=== PATIENT | female | born 1965 | race Caucasian/White ===

== ENCOUNTER → 2016-09-20 | Outpatient (CLI) | payer BC ==
--- NOTE | 2016-09-25 11:04 | MM ---
Reason for exam: screening (asymptomatic). Last mammogram was performed 2 years and 6 months ago. Physical Findings: A clinical breast exam by your physician is recommended on an annual basis and results should be correlated with mammographic findings. MG Screening Mammo w CAD Bilateral CC and MLO view(s) were taken. XCCL view(s) were taken of the right breast. Prior study comparison: March 25, 2014, bilateral MG screening mammo w CAD. August 27, 2012, bilateral digital screening mammo w/CAD. The breast tissue is heterogeneously dense. This may lower the sensitivity of mammography. There is no discrete abnormality. No significant changes when compared with prior studies. ASSESSMENT: Negative, BI-RAD 1 RECOMMENDATION: Routine screening mammogram of both breasts in 1 year.
== END ==
LOC: RADMAMWWP 08:23
PROVIDERS: ATTEND Family Medicine
DX: Z12.31 Encounter for screening mammogram for malignant neoplasm of breast (principal)

== ENCOUNTER 2016-11-22 07:11 | Day surgery (SDC) | payer BC ==
[2016-11-21 08:38] VITALS: BMI 26.4
[~2016-11-22 07:11] MED LIST: LACTATED RINGERS 1,000 ML IV SCH; LIDOCAINE 1% 20 ML VIAL (10MG/ML) FOR IV START INTRADERMA PRN
[2016-11-22 07:30] VITALS: TEMP 97.3
[2016-11-22] MEDS ORDERED: LIDOCAINE 1% 20 ML VIAL (10MG/ML) FOR IV START INTRADERMA ONE (07:38)
[2016-11-22] MEDS ORDERED: PROPOFOL 10 MG/ML 20 ML VIAL IV ONE (08:11)
[2016-11-22] MEDS ORDERED: LIDOCAINE 1% INJ 10MG/ML (20 ML MDV) ONE (08:11)
--- NOTE | 2016-11-22 08:31 | P.PCN ---
Date of Procedure: 11/22/16 Preoperative Diagnosis: Postoperative Diagnosis: Procedure(s) Performed: BRIEF HISTORY: Patient is a 51-year-old pleasant white female, scheduled for an elective colonoscopy as a part of screening for colorectal neoplasia. PROCEDURE PERFORMED: Colonoscopy. PREOPERATIVE DIAGNOSIS: Screening for colon cancer. IV sedation per Anesthesia. PROCEDURE: After informed consent was obtained, the patient, was brought into the endoscopy unit. IV sedation was administered by Anesthesia under continuous monitoring. Digital rectal examination was normal. Initially the Olympus CF- 160 flexible video colonoscope was then inserted in the rectum, gradually advanced into the cecum without any difficulty. Careful examination was performed as the scope was gradually being withdrawn. Ileocecal valve and the appendiceal orifice were visualized and appeared normal. Prep was excellent. Mucosa of the cecum, ascending colon, transverse colon, descending colon, sigmoid colon, and rectum appeared normal. Scattered sigmoid diverticulosis seen. Retroflexion was performed in the rectum and no lesions were seen. The patient tolerated the procedure well. IMPRESSION: Normal-appearing colon from rectum to cecum with no evidence of colorectal neoplasia . Scattered sigmoid diverticulosis. RECOMMENDATIONS: Findings of this examination were discussed with the patient as well as her family. She was advised to have a repeat screening colonoscopy in 10 years. Implants: Indications for Procedure: Operative Findings: Description of Procedure:
[2016-11-22 08:33] VITALS: RESP 16
[2016-11-22 09:07] VITALS: BP 117/68; PULSE 60
== END 2016-11-22 09:12 | disposition home or self-care (01) ==
LOC: ORWHC2ENDO 07:11
PROVIDERS: ATTEND Internal Medicine Gastroenterology
DX: Z12.11 Encounter for screening for malignant neoplasm of colon (principal); K57.30 Diverticulosis of large intestine without perforation or abscess without bleeding
CPT/HCPCS: 81025; J2001; J2704; G0121

== ENCOUNTER → 2018-03-06 | Outpatient (CLI) | payer BC ==
--- NOTE | 2018-03-07 14:19 | MM ---
Reason for exam: screening (asymptomatic). Last mammogram was performed 1 year and 5 months ago. Physical Findings: A clinical breast exam by your physician is recommended on an annual basis and results should be correlated with mammographic findings. MG Screening Mammo w CAD Bilateral CC and MLO view(s) were taken. XCCL view(s) were taken of the right breast. Prior study comparison: September 20, 2016, bilateral MG screening mammo w CAD. March 25, 2014, bilateral MG screening mammo w CAD. The breast tissue is heterogeneously dense. This may lower the sensitivity of mammography. Finding: There are typically benign vascular, round calcifications in the right breast. There is no discrete abnormality. ASSESSMENT: Benign, BI-RAD 2 RECOMMENDATION: Routine screening mammogram of both breasts in 1 year.
== END | disposition home or self-care (01) ==
LOC: RADMAMWWP 08:20
PROVIDERS: ATTEND Family Medicine
DX: Z12.31 Encounter for screening mammogram for malignant neoplasm of breast (principal)
CPT/HCPCS: 77067

== ENCOUNTER → 2018-03-14 | Outpatient (CLI) | payer BC ==
--- NOTE | 2018-03-14 10:50 | CT ---
EXAMINATION TYPE: CT abdomen pelvis w con DATE OF EXAM: 03/14/2018 COMPARISON: HISTORY: Abdominal and pelvic pain CT DLP: 986 mGycm CONTRAST: CT scan of the abdomen and pelvis is performed with Oral Contrast and with IV Contrast, patient injec gloria with 100 ml mL of Isovue 300. FINDINGS: LUNG BASES-: No visible nodule. No infiltrate. LIVER/GB: No calcified gallstones. No space occupying hepatic lesion. Biliary tree is of normal ca liber. PANCREAS: No inflammation. No distinct mass. SPLEEN: No splenic enlargement. No lesion seen. 1 cm splenic artery aneurysm noted. ADRENALS: No nodule. No thickening. KIDNEYS/BLADDER: No hydronephrosis. No nephrolithiasis. No distinct renal mass. Urinary bladder g rossly unremarkable. BOWEL: Normal appendix. Normal bowel caliber. No inflammation. GENITAL ORGANS: Left ovarian cyst measuring 2.6 cm. Right ovary is unremarkable. Subendometrial cyst s noted to measure 7 mm. Bilateral tubal ligation changes. LYMPH NODES: No greater than 1cm abdominal or pelvic lymph nodes are appreciated. AORTA: No significant abnormality. OSSEOUS STRUCTURES: No significant abnormality is seen. OTHER: No significant additional abnormality is seen. IMPRESSION: 1. Left ovarian cystic lesion noted. Examination is otherwise unremarkable.
== END | disposition home or self-care (01) ==
LOC: RADCTMAIN 09:08
PROVIDERS: ATTEND Family Medicine
DX: N83.202 Unspecified ovarian cyst, left side (principal)
CPT/HCPCS: 74177; Q9967

== ENCOUNTER → 2018-04-11 | Outpatient (CLI) | payer BC | LOC: LABPAT 09:21 | PROVIDERS: ATTEND Obstetrics & Gynecology | DX: Z01.812 Encounter for preprocedural laboratory examination (principal); N94.6 Dysmenorrhea, unspecified; N80.0 Endometriosis of uterus | CPT/HCPCS: 80051; 82565; 82947; 84520; 85025; 86850; 86870; 86880; 86900; 86901; 87086 ==

== ENCOUNTER 2018-04-15 05:44 | Observation (INO) | payer BC ==
[2018-04-11 09:55] LABS: Basophils % (A) 0 %; Eosinophils # (A) 0.3 k/uL (0-0.7); Eosinophils % (A) 5 %; HGB 13.2 gm/dL (11.4-16.0); Lymphocytes # (A) 1.5 k/uL (1.0-4.8); Lymphocytes % (A) 24 %; MCH 30.2 pg (25.0-35.0); MCV 91.5 fL (80.0-100.0); Mean Platelet Volume 6.5; Monocytes # (A) 0.3 k/uL (0-1.0); Monocytes % (A) 5 %; Neutrophils # (A) 3.9 k/uL (1.3-7.7); Neutrophils % (A) 64 %; Platelet Count 258 k/uL (150-450); RBC 4.37 m/uL (3.80-5.40); RDW 12.7 % (11.5-15.5); WBC 6.2 k/uL (3.8-10.6)
[2018-04-11 10:27] LABS: Anion Gap 8 mmol/L; Blood Urea Nitrogen 16 mg/dL (7-17); Carbon Dioxide 29 mmol/L (22-30); Chloride 105 mmol/L (98-107); Glucose 92 mg/dL (74-99); Sodium 142 mmol/L (137-145)
[2018-04-11 15:45] VITALS: BMI 27.3
--- NOTE | 2018-04-12 13:37 | HP ---
HISTORY AND PHYSICAL This is for surgery on Sunday, April 15. This is a 52-year-old white female 3, para 3-0-0-3, status post section x3, NovaSure endometrial ablation, and tubal ligation. The patient has done well after her ablation with the exception of the past several months. Her menses have become extremely uncomfortable,"debilitating". She has had pelvic and abdominal CT scans, several visits to the emergency room, and different pain medications, all within the past several months. Her most recent menses was so severe that she states,"I will never do that again". Patient understands that she is reasonably close to the menopause, however, recent FSH was in the normal ovulatory range. Ultrasound has been performed in the office, this reveals reasonably normal findings, uterine dimensions 8.4 x 4.6 x 3.8 cm, normal endometrial thickness. No ovarian abnormalities noted. I suspect the patient has adenomyosis. We have discussed in detail different options and she would like to proceed with hysterectomy. PAST MEDICAL HISTORY: Past medical history is unremarkable. PAST SURGICAL HISTORY: sections x3, endometrial ablation in 2016, tubal ligation in the past. SOCIAL HISTORY: Patient is , social alcohol, no drug use or tobacco use. She is employed at a local physician's office. CURRENT MEDICATIONS: Lysteda 650 mg as needed for pain control with menses. FAMILY HISTORY: Hypothyroidism and myocardial infarction. PHYSICAL EXAMINATION: On examination, this is a pleasant white female, 5 feet 0 inches, 145 pounds, BMI 27. Blood pressure 120/70. HEENT examination is negative, no thyromegaly, no cervical lymphadenopathy. Trachea soft and midline. Good range of motion of the neck. Breasts are bilaterally symmetric to inspection with no skin dimpling, nipple discharge, axillary adenopathy or discernible lesions or masses. Abdomen is soft and nontender, no CVA tenderness, normal bowel sounds, no organosplenomegaly. Chest is clear to auscultation in all mata anteriorly and posteriorly. Cardiac exam reveals regular rate and rhythm with no murmur, click, or rub. Extremities reveal good range of motion and normal reflexes, no edema. External genitalia is well estrogenized. Cervix is small and pink. In grasping the cervix at 12 o'clock with an Allis clamp, there is a grade 2 uterine prolapse appreciated. Uterus is otherwise smooth and small, midline. Adnexa are negative bilaterally. Rectal exam reveals good sphincter tone and FIT negative stool. IMPRESSION: 1. Increasingly severe dysmenorrhea, suspect adenomyosis. 2. Three previous sections. PLAN: I discussed with the patient total abdominal hysterectomy, Da Jacklyn robotically assisted hysterectomy, or straight vaginal hysterectomy. The uterus is small and mobile, there is an amount of prolapse, and I believe the case is best handled vaginally. We reviewed the risks of bleeding, infection, perforation or damage to the bladder, bowels, ureter. If bladder injury should occur, we will ask for urology assistance in repairing the same. Cystoscopy will be performed after the case to assure integrity of the bladder wall and ureters. The ACOG pamphlet on this have been given to the patient for her review. Patient has a strong medical background and I believe she understands our discussion with no reservation or question. Second opinion is offered and declined. MMODL / IJN: [id number] /
[~2018-04-15 05:44] MED LIST changes: -LACTATED RINGERS 1,000 ML IV SCH; -LIDOCAINE 1% 20 ML VIAL (10MG/ML) FOR IV START INTRADERMA PRN; +ceFAZolin IN SWFI 2 GM/20 ML SYRINGE IVP ONE
[2018-04-15] MEDS ORDERED: fentaNYL (PF) 50 MCG/ML 2 ML AMP IV PRN (06:16)
[2018-04-15] MEDS ORDERED: LIDOCAINE 1% 20 ML VIAL (10MG/ML) FOR IV START INTRADERMA PRN (06:16)
[2018-04-15] MEDS ORDERED: DEXAMETHASONE SOD PHOSPHATE 10 MG/ML 1 ML VIAL IV ONE (06:16)
[2018-04-15] MEDS ORDERED: MIDAZOLAM 2 MG/2 ML VIAL IV PRN (06:16)
[2018-04-15] MEDS ORDERED: ONDANSETRON 4 MG/2 ML VIAL IVP ONE (06:16)
[2018-04-15] MEDS: LACTATED RINGERS 1,000 ML IV SCH ×2 (06:30→18:12)
[2018-04-15] MEDS ORDERED: LIDOCAINE 1% INJ 10MG/ML (20 ML MDV) ONE (07:24)
[2018-04-15] MEDS ORDERED: MIDAZOLAM 2 MG/2 ML VIAL ONE (07:24)
[2018-04-15] MEDS ORDERED: PROPOFOL 10 MG/ML 20 ML VIAL IV ONE (07:24)
[2018-04-15] MEDS ORDERED: GLYCOPYRROLATE 0.2 MG/ML 2 ML VIAL ONE (07:24)
[2018-04-15] MEDS ORDERED: fentaNYL (PF) 50 MCG/ML 2 ML AMP ONE (07:24)
[2018-04-15] MEDS ORDERED: MORPHINE SULFATE (PF) 0.3 MG/0.3 ML SYR ONE (07:24)
[2018-04-15] MEDS ORDERED: ROCURONIUM BROMIDE 10 MG/ML 10 ML VIAL IV ONE (07:24)
[2018-04-15] MEDS ORDERED: NEOSTIGMINE 1 MG/ML 10 ML VIAL ONE (07:24)
[2018-04-15] MEDS ORDERED: HYDROmorphone (PF) 1 MG/ML ONE (07:24)
[2018-04-15] MEDS ORDERED: VASOPRESSIN 20 UNIT/ML 1 ML VIAL IM ONE (07:41)
[2018-04-15] MEDS ORDERED: LACTATED RINGERS 1,000 ML IV ONE (08:53)
[2018-04-15 10:12] VITALS: RESP 16
[2018-04-15] MEDS ORDERED: diphenhydrAMINE 50 MG/ML 1 ML VIAL IVP PRN (10:22)
[2018-04-15] MEDS ORDERED: Acetaminophen-Codeine 300-30mg TAB PO PRN (10:22)
[2018-04-15] MEDS ORDERED: ZOLPIDEM 5 MG TAB PO PRN (10:22)
[2018-04-15] MEDS ORDERED: ONDANSETRON 4 MG/2 ML VIAL IVP PRN (10:22)
[2018-04-15] MEDS ORDERED: IBUPROFEN 600 MG TAB PO PRN (10:22)
--- NOTE | 2018-04-15 10:22 | P.OP ---
Date of Procedure: 04/15/18 Preoperative Diagnosis: Severe dysmenorrhea, adenomyosis. Postoperative Diagnosis: Same, normal-appearing ovaries bilaterally. Procedure(s) Performed: Vaginal hysterectomy Anesthesia: CATHLEEN Surgeon: Ethel Francisco [employer] Officer #1: Ana Maria Marroquin Estimated Blood Loss (ml): 300 IV fluids (ml): 1,000 Urine output (ml): 400 Pathology: other (Cervix and uterus) Condition: stable Disposition: PACU Description of Procedure: Patient is brought to the operating suite where a spinal with Duramorph is given. She's placed in the dorsal lithotomy position after the administration of a general anesthetic. The appropriate timeout is performed to assure proper patient and procedural identification. Urine test is negative. The cervix, vagina, perineal bodies are all prepped and draped in usual sterile fashion. Pardo catheter is used to drain the bladder for several 100 mL of urine. Weighted speculum was placed into the vagina. The anterior lip of the cervix is grasped with a double-tooth tenaculum. The cervix is injected circumferentially with a dilute Pitressin solution. A kootenai blade scalpel is used to push the mucosa from the underlying fascial plane. Peritoneum is entered posteriorly at 6:00 and suture tied with 2-0 Vicryl, this is held with a hemostat. The large billed speculum is then placed into the peritoneal cavity. At all times care is taken to keep the bladder swept well from the operative field to avoid bladder and/or ureteral injury. The uterosacral cardinal ligaments are identified, clamped cut and held with 0 Vicryl suture in a fanlike fashion. Additional pedicles are taken superior to this on either side. Uterine vasculature is identified, clamped cut and suture ligated. In attempting to "walked out" the uterus posteriorly, the uterus is very friable and tenaculums, Allis clamps, ring forceps all sheared or pulled through the tissue. For this reason, mobilization posteriorly of the uterus was difficult. The anterior peritoneum was entered carefully, Erika clamps are used around the final pedicles and the uterus is sent to pathology for evaluation. The remaining pedicles are suture tied with 0 Vicryl, flashed, and retied. At this time a sponge stick is used to visualize the ovaries, they appear normal , very high in the cavity bilaterally, clean and dry. All vascular pedicles are once again visualized and noted to be normal. The speculum is changed to the shallow billed speculum. The previously placed 2-0 Vicryl suture is brought around in a pursestring fashion to close the peritoneum. The previously held uterosacral cardinal ligament complex these are brought across to incorporate the opposite complex as well as vaginal mucosa. 3 other figure- of-eight sutures are used on the vaginal mucosa for final closure. At this time the cystoscope was placed into the bladder and the bladder is distended with sterile saline. Inspection of the bladder mucosa reveals it to be intact. Bilateral ureters are inspected and noted to be peristalsing. Cystoscope was removed. Pardo catheter is placed. Vagina is packed with one- inch iodophor gauze with basic tracing. All sponge needle and enhancement counts are correct at the end of the procedure. Estimated blood loss 300 mL, fluid replacement 1000 mL, urine 400 mL's. Patient is brought back to recovery room in very good condition with a blood pressure of 143/82, pulse 56.
[2018-04-15] MEDS: METOCLOPRAMIDE 5 MG/ML 2 ML VIAL IVP PRN ×2 (11:11→18:20)
[2018-04-15] MEDS: KETOROLAC 30 MG/ML 1 ML VIAL IVP PRN ×3 (11:21→23:21)
[2018-04-16] MEDS: KETOROLAC 30 MG/ML 1 ML VIAL IVP PRN (05:24)
[2018-04-16 08:22] LABS: Basophils % (A) 0 %; Eosinophils # (A) 0.1 k/uL (0-0.7); Eosinophils % (A) 1 %; HGB 10.4 gm/dL (11.4-16.0); Lymphocytes # (A) 1.5 k/uL (1.0-4.8); Lymphocytes % (A) 15 %; MCH 29.8 pg (25.0-35.0); MCHC 32.5 g/dL (31.0-37.0); MCV 91.6 fL (80.0-100.0); Mean Platelet Volume 6.7; Monocytes # (A) 0.6 k/uL (0-1.0); Monocytes % (A) 6 %; Neutrophils # (A) 7.7 k/uL (1.3-7.7); Neutrophils % (A) 77 %; Platelet Count 226 k/uL (150-450); RBC 3.49 m/uL (3.80-5.40); RDW 12.8 % (11.5-15.5)
--- NOTE | 2018-04-16 08:52 | P.DS ---
Providers Date of admission: 04/15/18 15:57 Expected date of discharge: 04/16/18 Attending physician: Ethel Francisco Primary care physician: [facility] Course: This is a 52-year-old white female 3 para 3003 who presents with a history of severe increasing dysmenorrhea. She has had a previous NovaSure endometrial ablation and the diagnosis of adenomyosis extremely. She has not been controlled with any type of narcotics or pain medication and therefore the decision was made to proceed with vaginal hysterectomy. Please see my dictated history and physical for details. Patient underwent a vaginal hysterectomy under my care. She did well intraoperatively with an estimated blood loss of 300 mL's. Cystoscopy after the procedure revealed negative appearing bladder cavity, normal-appearing ureters bilaterally. The vagina was packed with iodoform gauze, ovaries were inspected and noted to be normal and therefore left in situ. Please see my dictated operative note for details. This morning the Pardo catheter and the vaginal packing is then removed. CBC is stable. Vital signs the been stable and the patient feels well. She is voiding, ambulating and passing flatus without difficulty. There is no vaginal bleeding. No flank pain. Patient is judged to be in very good condition for discharge home. She will follow-up with me in the office in 2 weeks. I have reminded her no intercourse tampons or douching. She will use [id number] Advil or Aleve or the lysteda previously prescribed for pain as needed. No heavy lifting, no driving for 2 weeks. No heavy lifting greater than then 25 pounds, no heavy housework. Patient will call with any fevers shakes or chills, foul smelling or bloody vaginal drainage, with any pain not alleviated by [id number] products, with any issues with urination or defecation, or indeed with any concerns. Patient Condition at Discharge: Good Plan - Discharge Summary Discharge Rx Participant: Yes New Discharge Prescriptions: No Action No Known Home Medications Discharge Medication List No Known Home Medications 03/31/16 [History] Follow up Appointment(s)/Referral(s): Ethel Francisco MD [STAFF PHYSICIAN] - 2 Weeks Discharge Disposition: HOME SELF-CARE
[2018-04-16 09:33] VITALS: BP 105/62; PULSE 65; TEMP 98.2
--- NOTE | 2018-04-16 10:38 | P.PN ---
Subjective Progress Note Date: 04/16/18 Principal diagnosis: POD 1 Vaginal Hysterectomy VAS 4/10 denies compliants No headaches, no pruruitis Primary team for pain managment Objective - Vital Signs Vital signs: Vital Signs Temp 98.2 F 04/16/18 08:00 Pulse 65 04/16/18 08:00 Resp 16 04/16/18 08:00 BP 105/62 04/16/18 08:00 Pulse Ox 96 04/15/18 23:52 Intake & Output 04/15/18 04/16/18 04/16/18 18:59 06:59 18:59 Intake Total 1100 Output Total 1150 1550 Balance -50 -1550 Weight 63.503 kg Intake: IV 1100 Output: Urine 850 1550 Uretheral (Pardo) 450 Estimated Blood Loss 300 Other: Voiding Method Indwelling Catheter # Voids 0 - Labs CBC & Chem 7: 04/16/18 07:34 04/11/18 09:24 Labs: Abnormal Lab Results - Last 24 Hours (Table) 04/16/18 Range/Units 07:34 RBC 3.49 L (3.80-5.40) m/uL Hgb 10.4 L (11.4-16.0) gm/dL Hct 32.0 L (34.0-46.0) %
== END 2018-04-16 11:00 | disposition home or self-care (01) ==
LOC: OR 05:44 → 4FBP 09:46 → OR 16:00
PROVIDERS: ADMIT Obstetrics & Gynecology; ATTEND Obstetrics & Gynecology
DX: N80.0 Endometriosis of uterus (principal); N94.6 Dysmenorrhea, unspecified; N81.4 Uterovaginal prolapse, unspecified; Z98.51 Tubal ligation status; Z83.49 Family history of other endocrine, nutritional and metabolic diseases; Z82.49 Family history of ischemic heart disease and other diseases of the circulatory system
CPT/HCPCS: 58260; 81025; 85025; 88307; G0378 ×2; J2250; J1100; J2710; J2765; J2405; J2001; J2274; J3010; J1885 ×2; J1170; J2704; J0690; 80051; 82565; 82947; 84520; 86850; 86870; 86880; 86900; 86901; 87086

== ENCOUNTER → 2019-04-07 | Outpatient (CLI) | payer BC ==
--- NOTE | 2019-04-07 13:20 | MM ---
Reason for exam: screening (asymptomatic). Last mammogram was performed 1 year and 1 month ago. History: Patient is postmenopausal. Physical Findings: A clinical breast exam by your physician is recommended on an annual basis and results should be correlated with mammographic findings. MG Screening Mammo w CAD Bilateral CC and MLO view(s) were taken. Prior study comparison: March 06, 2018, bilateral MG screening mammo w CAD. September 20, 2016, bilateral MG screening mammo w CAD. The breast tissue is heterogeneously dense. This may lower the sensitivity of mammography. Stable calcifications in the right breast. No suspicious abnormality. No significant changes when compared with prior studies. ASSESSMENT: Negative, BI-RAD 1 RECOMMENDATION: Routine screening mammogram of both breasts in 1 year.
== END | disposition home or self-care (01) ==
LOC: RADMAMWWP 08:38
PROVIDERS: ATTEND Obstetrics & Gynecology
DX: Z12.31 Encounter for screening mammogram for malignant neoplasm of breast (principal)
CPT/HCPCS: 77067

== ENCOUNTER → 2020-04-14 | Outpatient (CLI) | payer BC ==
--- NOTE | 2020-04-19 11:43 | MM ---
Reason for exam: screening (asymptomatic). Last mammogram was performed 1 year ago. History: Patient is postmenopausal. Physical Findings: A clinical breast exam by your physician is recommended on an annual basis and results should be correlated with mammographic findings. MG Screening Mammo w CAD Bilateral CC and MLO view(s) were taken. Prior study comparison: April 07, 2019, bilateral MG screening mammo w CAD. March 06, 2018, bilateral MG screening mammo w CAD. The breast tissue is heterogeneously dense. This may lower the sensitivity of mammography. A few benign vascular calcifications. No significant changes when compared with prior studies. ASSESSMENT: Negative, BI-RAD 1 RECOMMENDATION: Routine screening mammogram of both breasts in 1 year.
== END | disposition home or self-care (01) ==
LOC: RADMAMWWP 07:59
PROVIDERS: ATTEND Family Medicine
DX: Z12.31 Encounter for screening mammogram for malignant neoplasm of breast (principal)
CPT/HCPCS: 77067

== ENCOUNTER → 2021-04-06 | Outpatient (CLI) | payer BC ==
--- NOTE | 2021-04-06 13:13 | XR ---
Lumbar spine HISTORY: Low back pain 3 views the lumbar spine There is an anterolisthesis grade 1 L4-5. There is associated loss of disc height at L2-3, L4-5, L5-S 1. Sclerosis is present in the posterior elements of lumbar spine. Multilevel spondylosis is present. Lumbar vertebral bodies show preserved height and bone mineralization. IMPRESSION: Spondylolisthesis, degenerative disc disease and facet arthropathy.
== END | disposition home or self-care (01) ==
LOC: RADXRMAIN 11:08
PROVIDERS: ATTEND Family Medicine
DX: M51.36 Other intervertebral disc degeneration, lumbar region (principal); M47.816 Spondylosis without myelopathy or radiculopathy, lumbar region; M43.16 Spondylolisthesis, lumbar region
CPT/HCPCS: 72100

== ENCOUNTER → 2021-08-24 | Outpatient (CLI) | payer BC ==
--- NOTE | 2021-08-24 10:51 | BD ---
EXAMINATION TYPE: Axial Bone Density DATE OF EXAM: 08/24/2021 COMPARISON: NONE CLINICAL HISTORY: Height: 60.2 IN Weight: 148 LBS FRAX RISK QUESTIONS: Secondary Osteoporosis: 3. Menopause before 45: PARTIAL HYST AGE 52 RISK FACTORS HISTORY OF: Active: YES Diet low in dairy products/other sources of calcium: YES Postmenopausal woman: PARTIAL HYST AGE 52 MEDICATIONS: Additional Medications: CALCIUM, VIT D, ASPIRIN EXAM MEASUREMENTS: Bone mineral densitometry was performed using the [employer]chips System. Bone mineral density as measured about the Lumbar spine is: ----- L1-L4(G/cm2): 1.357 T Score Values are as follows: ----- L2: 1.4 ----- L3: 1.8 ----- L4: 1.8 ----- L1-L4: 1.5 Bone mineral density BASELINE Bone mineral density about the R hip (g/cm2): 1.028 Bone mineral density about the L hip (g/cm2): 1.055 T Score values are as follows: -----R Neck: -0.1 -----L Neck: 0.1 -----R Total: 0.8 -----L Total: 1.3 Bone mineral density BASELINE IMPRESSION: No evidence for osteoporosis or osteopenia at this time. NOTE: T-SCORE=SD OF THE YOUNG ADULT MEAN.
--- NOTE | 2021-08-24 11:27 | MM ---
Reason for exam: screening (asymptomatic). Last mammogram was performed 1 year and 4 months ago. History: Patient is postmenopausal. Physical Findings: A clinical breast exam by your physician is recommended on an annual basis and results should be correlated with mammographic findings. MG Screening Mammo w CAD Bilateral CC and MLO view(s) were taken. Prior study comparison: April 14, 2020, bilateral MG screening mammo w CAD. April 07, 2019, bilateral MG screening mammo w CAD. The breast tissue is heterogeneously dense. This may lower the sensitivity of mammography. Nodular density 12 o'clock left breast zone B. ASSESSMENT: Incomplete: need additional imaging evaluation, BI-RAD 0 RECOMMENDATION: Special view mammogram of the left breast. If lesion persists on supplemental views, image directed ultrasound is recommended. [facility] will attempt to contact patient to return for supplemental views and ultrasound if indicated.
== END | disposition home or self-care (01) ==
LOC: RADMAMWWP 08:20
PROVIDERS: ATTEND Obstetrics & Gynecology
DX: Z12.31 Encounter for screening mammogram for malignant neoplasm of breast (principal); Z78.0 Asymptomatic menopausal state
CPT/HCPCS: 77067; 77080

== ENCOUNTER → 2021-08-30 | Outpatient (CLI) | payer BC ==
--- NOTE | 2021-08-31 08:41 | MM ---
Reason for exam: additional evaluation requested from abnormal screening. Last mammogram was performed less than 1 month ago. History: Patient is postmenopausal. Physical Findings: A clinical breast exam by your physician is recommended on an annual basis and results should be correlated with mammographic findings. MG 3D Work Up W/Cad LT Spot compression CC, spot compression MLO, and LM view(s) were taken of the left breast. Prior study comparison: August 24, 2021, bilateral MG screening mammo w CAD. April 14, 2020, bilateral MG screening mammo w CAD. The breast tissue is heterogeneously dense. This may lower the sensitivity of mammography. The central asymmetric density disperses on additional views. On spot 3D MLO and 3D lateral, there is a 4mm circumscribed nodule approximately 2 o'clock, likely cyst. Ultrasound recommended. These results were verbally communicated with the patient and result sheet given to the patient on 08/30/21. ASSESSMENT: Incomplete: need additional imaging evaluation, BI-RAD 0 RECOMMENDATION: Ultrasound of the left breast. (2 o'clock)
--- NOTE | 2021-08-31 08:42 | USB ---
Reason for exam: additional evaluation requested from abnormal screening. History: Patient is postmenopausal. US Breast Workup Limited LT Left limited breast ultrasound including focal area of concern, retroareolar and axilla demonstrates a 0.4 x 0.5 x 0.2cm oval, cystic lesion at 2 o'clock, likely mammographic correlate and a 2.8 x 1.5 x 0.6cm lymph node at the axilla, prominent but benign appearing. Scanned 12-3 o'clock. These results were verbally communicated with the patient and result sheet given to the patient on 08/30/21. ASSESSMENT: Probably benign, BI-RAD 3 RECOMMENDATION: Follow-up diagnostic mammogram of the left breast in 6 months.
== END | disposition home or self-care (01) ==
LOC: RADMAMWWP 14:55
PROVIDERS: ATTEND Obstetrics & Gynecology
DX: R92.8 Other abnormal and inconclusive findings on diagnostic imaging of breast (principal); Z78.0 Asymptomatic menopausal state
CPT/HCPCS: 77061; 77065

== ENCOUNTER → 2022-03-06 | Outpatient (CLI) | payer BC ==
--- NOTE | 2022-03-06 08:14 | MM ---
Reason for Exam: Additional evaluation requested from prior study. Last screening mammogram was performed 6 month(s) ago. Patient History: Menarche at age 13. First Full-Term at age 27. Hysterectomy at age 52. Postmenopausal. Patient has history of breast feeding. Risk Values: Vicky 5 year model risk: 1.3%. NCI Lifetime model risk: 9.1%. Prior Study Comparison: 04/14/2020 Bilateral Screening Mammogram, [facility]. 08/24/2021 Bilateral Screening Mammogram, [facility]. 08/30/2021 Left Diagnostic Mammogram, [facility]. Tissue Density: Left: The breast tissue is heterogeneously dense. This may lower the sensitivity of mammography. Findings: Analyzed By CAD. Stable 4 mm circumscribed nodule approximately 2:00. No new suspicious masses. No worrisome cluster microcalcifications. No significant change from prior examinations. Overall Assessment: Benign, BI-RAD 2 Management: Screening Mammogram of both breasts in 6 months. A clinical breast exam by your physician is recommended on an annual basis and results should be correlated with mammographic findings. This exam should not preclude additional follow-up of suspicious palpable abnormalities. Results were given to the patient verbally at the time of exam. Electronically signed and approved by: Edward Brown D.O.
== END | disposition home or self-care (01) ==
LOC: RADMAMWWP 07:41
PROVIDERS: ATTEND Obstetrics & Gynecology
DX: R92.8 Other abnormal and inconclusive findings on diagnostic imaging of breast (principal); Z78.0 Asymptomatic menopausal state
CPT/HCPCS: 77061; 77065

== ENCOUNTER 2022-09-10 10:09 | Emergency (ER) | payer BC ==
[2022-09-10 10:29] VITALS: BP 130/74; PULSE 77; RESP 18; TEMP 98.4
--- NOTE | 2022-09-10 11:04 | ED ---
Eye Problem HPI - General Chief complaint: Eye Problems Stated complaint: Eye Infection Time Seen by Provider: 09/10/22 10:44 Source: patient, RN notes reviewed Mode of arrival: ambulatory Limitations: no limitations - History of Present Illness Initial comments: This is a 56-year-old female who presents to the emergency department for pain and swelling to the right eyelid. Patient states that this started started 5 days ago. She started taking Augmentin and antibiotic eyedrops yesterday. She cannot recall which eyedrop this was. Denies injuring the eye or having any visual changes, photophobia, or drainage from the eye. Also denies any history of similar symptoms in the past. Denies any fevers, chills, sore throat, cough, dyspnea, chest pain, palpitations, abdominal pain, nausea, vomiting, diarrhea, back pain, or headaches. MD chief complaint: eye pain Onset/Timin -: days(s) Location: right eye - Related Data Home Medications Medication Instructions Recorded Confirmed No Known Home Medications 03/31/16 04/15/18 Allergies Allergy/AdvReac Type Severity Reaction Status Date / Time No Known Allergies Allergy Verified 09/10/22 10:29 Review of Systems ROS Statement: Those systems with pertinent positive or pertinent negative responses have been documented in the HPI. ROS Other: All systems not noted in ROS Statement are negative. Past Medical History Past Medical History: No Reported History Additional Past Medical History / Comment(s): SEVERE CRAMPING, PAIN W/ MENSTRUAL CYCLES. History of Any Multi-Drug Resistant Organisms: None Reported Past Surgical History: Section, Tubal Ligation, Uterine Ablation Additional Past Surgical History / Comment(s): X3. UTERINE ABLATION 2016. COLONOSCOPY. Past Anesthesia/Blood Transfusion Reactions: No Reported Reaction Past Psychological History: No Psychological Hx Reported Smoking Status: Never smoker Past Alcohol Use History: None Reported Past Drug Use History: None Reported - Past Family History Mother Family Medical History: No Reported History General Exam Limitations: no limitations General appearance: alert, in no apparent distress Head exam: Present: atraumatic, normocephalic, normal inspection Eye exam: Present: PERRL, EOMI, other (Erythema and swelling to the right eyelid. No drainage.). Absent: conjunctival injection Respiratory exam: Present: normal lung sounds bilaterally. Absent: respiratory distress, wheezes, rales, rhonchi, stridor Cardiovascular Exam: Present: regular rate, normal rhythm, normal heart sounds. Absent: systolic murmur, diastolic murmur, rubs, gallop, clicks Neurological exam: Present: alert, oriented X3, CN II-XII intact Psychiatric exam: Present: normal affect, normal mood Skin exam: Present: warm, dry, intact, normal color. Absent: rash Course Vital Signs 09/10/22 10:26 Temperature 98.4 F Pulse Rate 77 Respiratory 18 Rate Blood Pressure 130/74 O2 Sat by Pulse 99 Oximetry Medical Decision Making - Medical Decision Making This is a 56-year-old female who presents to the emergency department for right eye pain. Was pt. sent in by a medical professional or institution? @ -No Did you speak to anyone other than the patient for history? @ -Yes, Dr. Junior Did you review nursing and triage notes? @ -Yes, and I agree, it is accurate with regards to the patient's symptoms. Were old charts reviewed? @ -No Differential Diagnosis? @ -Differential Eye Pain: Conjuncitivitis (viral, bacterial, allergic), corneal abrasion, foreign body, iritis, uveitis, keratitis, acute angle closure glaucoma, this is not meant to be an all-inclusive list. What testing was considered but not performed? (CT, X-rays, U/S, labs)? Why? @ -None What meds were considered but not given? Why? @ -None Did you discuss the management of the patient with other professionals? @ -No Did you reconcile home meds? @ -No Was smoking cessation discussed for >3mins.? @ -No Was critical care preformed (if so, how long)? @ -No Were there social determinants of health that impacted care today? How? (Homelessness, low income, unemployed, alcoholism, drug addiction, transportation, low edu. Level, literacy, decrease access to med. care, residential, rehab)? @ -No Was there de-escalation of care discussed even if they declined? (Discuss DNR or withdrawal of care, Hospice)? @ -No What co-morbidities impacted this encounter? (DM, HTN, Smoking, COPD, CAD, Cancer, CVA, Hep., AIDS, mental health diagnosis, sleep apnea, morbid obesity)? @ -None Was patient admitted / discharged? @ -Discharged. Patient evaluated by myself and Dr. White. Physical examination not consistent with a conjunctivitis. Symptoms are more suspicious for a blocked tear duct or a blepharitis. I offered to do fluorescein staining, however the patient declined. I am in agreement with this due to the lack of conjunctival injection and no known injury. Discussed that because she has only been on antibiotics for less than 24 hours at this point, she should continue on the current course. I spoke with Dr. Augustin, ophthalmology, and he said that the patient can come to their office first thing Sunday for an appointment, as they are in surgery Sunday. Undiagnosed new problem with uncertain prognosis? @ -None Drug Therapy requiring intensive monitoring for toxicity (Heparin, Nitro, Insulin, Cardizem)? @ -None Were any procedures done? @ -None Diagnosis/symptom? @ -Swelling of right eyelid Acute, or Chronic, or Acute on Chronic? @ -Acute Uncomplicated (without systemic symptoms) or Complicated (systemic symptoms)? @ -Uncomplicated Side effects of treatment? @ -None Exacerbation, Progression, or Severe Exacerbation] @ -Not applicable Poses a threat to life or bodily function? @ -No Return precautions reviewed in depth, the patient is instructed to return to the emergency department with any new, worsening, or concerning symptoms. Patient verbalized understanding. This case was discussed in detail with the attending ED physician, Dr. White. Presentation, findings, and treatment plan discussed in detail as well. Disposition Clinical Impression: Swelling of right eyelid Disposition: HOME SELF-CARE Instructions (If sedation given, give patient instructions): Blepharitis (ED), Blocked Tear Duct (ED) Additional Instructions: Return to the emergency department with any new, worsening, or concerning symptoms. Continue taking the oral antibiotics and using the antibiotic eyedrops as prescribed. Apply warm compresses and massage the affected area. Contact ophthalmology first thing Sunday, and they will see you in the office for a follow-up appointment. Follow up with your primary care provider in 1-2 days. Is patient prescribed a controlled substance at d/c from ED?: No Referrals: Ochoa Junior MD [Primary Care Provider] - 1-2 days Katarzyna Hposon MD [STAFF PHYSICIAN] - 1-2 days
[2022-09-10] MEDS: FLUORESCEIN STRIPS 1 MG STRIP RIGHT EYE ONE ×2 (11:14→11:52)
[2022-09-10] MEDS: PROPARACAINE 0.5% OPHTH DROPS 15 ML BTL RIGHT EYE ONE ×2 (11:14→11:52)
== END 2022-09-10 11:47 | disposition home or self-care (01) ==
LOC: EC 10:09
DX: H02.841 Edema of right upper eyelid (principal)
CPT/HCPCS: 99283

== ENCOUNTER → 2024-04-29 | Outpatient (CLI) | payer BC ==
--- NOTE | 2024-05-04 19:00 | MM ---
Reason for Exam: Screening (asymptomatic). Last mammogram was performed 1 year(s) and 9 month(s) ago. Patient History: Menarche at age 13. First Full-Term at age 27. Hysterectomy at age 52. Postmenopausal. Patient has history of breast feeding. Risk Values: Vicky 5 year model risk: 1.4%. NCI Lifetime model risk: 8.7%. Prior Study Comparison: 08/30/2021 Left Diagnostic Mammogram, [facility]. 03/06/2022 Left MG 3D diag mammo w/cad LT, [facility]. 08/18/2022 Bilateral MG 3D screening mammo w/cad, [facility]. Tissue Density: The breasts are heterogeneously dense, which may obscure small masses. Findings: Analyzed By CAD. The pattern is symmetrical. No significant interval change. Vascular calcification is present bilaterally. No suspicious groups of microcalcifications, spiculated or lobular masses, architectural distortion or other secondary signs of malignancy are mammographically apparent. Overall Assessment: Benign, BI-RAD 2 Management: Screening Mammogram of both breasts in 1 year. A negative mammogram report should not preclude additional follow up of suspicious palpable abnormalities. Patient should continue monthly self breast exam. A clinical breast exam by your physician is recommended on an annual basis and results should be correlated with mammographic findings. Note on Vicky scores and lifetime risk: 1. A Vicky score greater than 3% is considered moderate risk. If this is the case, consider specialist referral to assess eligibility for a risk reducing agent. 2. If overall lifetime risk for the development of breast cancer is 20% or higher, the patient may qualify for future screening with alternating mammogram and breast MRI. [facility], , 05/04/2024 6:57 PM. Electronically signed and approved by: Kirt Thayer D.O. Radiologis
== END | disposition home or self-care (01) ==
LOC: RADMAMWWP 08:08
PROVIDERS: ATTEND Obstetrics & Gynecology
DX: Z12.31 Encounter for screening mammogram for malignant neoplasm of breast (principal); R92.333 Mammographic heterogeneous density, bilateral breasts; Z78.0 Asymptomatic menopausal state
CPT/HCPCS: 77063; 77067